=== PATIENT | male | born 1970 | race Caucasian/White ===

== ENCOUNTER 2016-07-26 05:50 | Emergency (ER) ==
[2016-07-26] MEDS ORDERED: SODIUM CHLORIDE 1,000 ML IV STA ×3 (05:51→08:08)
[2016-07-26] MEDS ORDERED: ZOFRAN 4 MG/2 ML IVP STA ×2 (05:52→08:53)
[2016-07-26] MEDS ORDERED: DILAUDID 1 MG/ML SYRINGE IVP STA ×3 (05:52→08:53)
[2016-07-26 06:00] VITALS: BP 108/74; TEMP 98.8; BMI 39.0
[2016-07-26 06:01] LABS: BASOPHILS % (AUTO) 0.2 % (0.0-3.0); EOSINOPHILS # (AUTO) 0.1 K/ul (0.0-0.7); EOSINOPHILS % (AUTO) 0.5 % (0.0-7.0); HEMATOCRIT 48.9 % (42.0-52.0); HEMOGLOBIN 16.6 g/dl (14.0-18.0); IMMATURE GRANULOCYTE % (AUTO) 0.5 % (0.0-5.0); LYMPHOCYTES # (AUTO) 0.6 K/uL (0.60-3.4); LYMPHOCYTES % (AUTO) 5.4 (10.0-50.0); MEAN CORPUSCULAR HEMOGLOBIN 29.7 pg (27.0-31.0); MEAN CORPUSCULAR HGB CONC 33.9 (31.8-35.4); MEAN CORPUSCULAR VOLUME 87.5 fl (80.0-94.0); MONOCYTES # (AUTO) 0.5 K/uL (0.4-2.0); MONOCYTES % (AUTO) 4.1 (0-10); NEUTROPHILS % (AUTO) 89.3; PLATELET COUNT 156 10^3/uL (140-440); RED BLOOD COUNT 5.59 10^6/ul (4.70-6.10); WHITE BLOOD COUNT 11.16 K/ul (4.2-10.2)
[2016-07-26 06:21] LABS: ALANINE AMINOTRANSFERASE 41 U/L (12-78); ALBUMIN/GLOBULIN RATIO 1.11; ALKALINE PHOSPHATASE 61 U/L (50-136); AMYLASE 87 U/L (25-115); ANION GAP 13.4; ASPARTATE AMINO TRANSFERASE 22 U/L (15-37); BILIRUBIN,TOTAL 1.11 mg/dL (0.00-1.20); BLOOD UREA NITROGEN 18 mg/dL (7-18); BUN/CREATININE RATIO 18.18; CALCIUM 9.1 mg/dL (8.2-10.2); CARBON DIOXIDE 24 mmol/L (21-32); CHLORIDE 107 mmol/L (98-107); CREATINE KINASE 138 U/L; CREATININE 0.99 mg/dL (0.60-1.10); GLUCOSE 151 mg/dL (70-100); LIPASE 24 U/L (8-78); POTASSIUM 4.4 mmol/L (3.5-5.1); TOTAL PROTEIN 7.6 g/dL (6.4-8.2)
--- NOTE | 2016-07-26 06:23 | ED.PDOC ---
General Stated Complaint: vomiting and abd pain for 5hrs--no diarrhea Time Seen by Physician: 05:55 Mode of Arrival: Walk-In Information Source: Patient Exam Limitations: No limitations Nursing and Triage Documentation Reviewed and Agree: Yes <JOSE FRANCISCONORMA - Last Filed: 07/26/16 06:46> Stated Complaint: BEGAN WITH [employer] DENIES CONCERS ABOUT FOOD HAS BEEN AT WORK <FABRICIO SANDERS JR - Last Filed: 07/26/16 08:12> ED Provider: Dr. FABRICIO SANDERS JR Chief Complaint: Nausea/Vomiting GI Complaint Exam - Abdominal Pain Complaint/Exam Onset: Gradual Duration: 5hrs Symptoms Are: Still present Timing: Constant Initial Severity: Mild Current Severity: Moderate Location of Pain: Diffuse Character: Reports: Dull, Aching, Cramping Aggravating: Reports: None Alleviating: Reports: None Associated Signs and Symptoms: Reports: Nausea, Vomiting. Denies: Diaphoresis, Fever, Cough, Chest pain, Dizziness, Back pain, Constipation, Blood in stool, Dysuria, Urinary frequency, Decreased urine output, Decreased appetite, Discharge, Diarrhea Cardiac Risk Factors: Reports: DM Testicular Torsion Risk Factors: Reports: None Surgical Obstruction Risk Factors: Reports: None Related Surgical History: Reports: None Abdominal Findings: Present: None Differential Diagnoses: Appendicitis, Bowel Obstruction, Constipation, Pancreatitis, GB Quality Indicator For Non-Traumatic Chest Pain/Syncope: EKG Performed <JOSE FRANCISCONORMA Last Filed: 07/26/16 06:46> Review of Systems - Review Of Systems Constitutional: Reports: No symptoms Eyes: Reports: No symptoms Ears, Nose, Mouth, Throat: Reports: No symptoms Respiratory: Reports: No symptoms Cardiac: Reports: No symptoms GI: Reports: Abdominal pain, Nausea, Vomiting. Denies: Diarrhea : Reports: No symptoms Musculoskeletal: Reports: No symptoms Skin: Reports: No symptoms Neurological: Reports: No symptoms Endocrine: Reports: No symptoms Hematologic/Lymphatic: Reports: No symptoms All Other Systems: Reviewed and Negative <JOSE FRANCISCONORMA - Last Filed: 07/26/16 06:46> Past Medical History - Past Medical History Endocrine: Reports: DM 2 Cardiovascular: Reports: Unknown Respiratory: Reports: Unknown Hematological: Reports: Unknown Gastrointestinal: Reports: Unknown Genitourinary: Reports: Unknown Neuro/Psych: Reports: Unknown Musculoskeletal: Reports: Unknown Cancer: Reports: Unknown - Surgical History General Surgical History: Reports: Unknown - Family History Family History: Reports: Unknown - Social History Smoking Status: Never smoker Hx Substance Use: No Alcohol Screening: None - Immunizations Tetanus Shot up to Date: Yes <NORMA FELTON - Last Filed: 07/26/16 06:46> Physical Exam - Physical Exam Appearance: Well-appearing, No pain distress, Well-nourished Pain Distress: Moderate Eyes: LINA, EOMI, Conjunctiva clear ENT: Ears normal, Nose normal, Oropharynx normal Neck: Supple Respiratory: Airway patent, Breath sounds clear, Breath sounds equal, Respirations nonlabored Cardiovascular: RRR, Pulses normal, No rub, No murmur GI/: Soft, No masses, Bowel sounds normal, No Organomegaly, Tender Musculoskeletal: Normal strength Skin: Warm, Dry, Normal color Neurological: Sensation intact, Motor intact, Reflexes intact, Cranial nerves intact, Alert, Oriented Psychiatric: Affect appropriate, Mood appropriate, Anxious <NORMA FELTON - Last Filed: 07/26/16 06:46> Physician Notification - Case Discussed Physician Notified: dr sanders Time of Notification: 07:00 <NORMA FELTON - Last Filed: 07/26/16 06:46> - Case Discussed Physician Notified: USHA CORBETT Time of Notification: 08:11 (ACCEPT FOR JELLY CLAY) Endorsed To/Discussed With: DR SWAIN Time of Discussion: 06:30 Admit/Transition Orders Entered by ED Provider: Yes <FABRICIO SANDERS JR - Last Filed: 07/26/16 08:12> Critical Care Note - Critical Care Note Total Time (mins): 2 <FABRICIO SANDERS JR - Last Filed: 07/26/16 08:12> Course - Course Hematology/Chemistry: 07/26/16 05:55 <NORMA FELTON - Last Filed: 07/26/16 06:46> - Course Hematology/Chemistry: 07/26/16 05:55 07/26/16 05:55 <FABRICIO SANDERS JR - Last Filed: 07/26/16 08:12> - Course Orders, Labs, Meds: Lab Review 07/26/16 07/26/16 07/26/16 05:55 06:00 06:30 WBC 11.16 H RBC 5.59 Hgb 16.6 Hct 48.9 MCV 87.5 MCH 29.7 MCHC 33.9 RDW Coeff of María 12.3 Plt Count 156 Immature Gran % (Auto) 0.5 Neut % (Auto) 89.3 Lymph % (Auto) 5.4 L [place] % (Auto) 4.1 Eos % (Auto) 0.5 Baso % (Auto) 0.2 Immature Gran # (Auto) 0.1 Neut # 10.0 H Lymph # 0.6 [place] # 0.5 Eos # 0.1 Baso # 0.0 Sodium 140 Potassium 4.4 Chloride 107 Carbon Dioxide 24 Anion Gap 13.4 BUN 18 Creatinine 0.99 Estimated GFR (MDRD) 81.00 BUN/Creatinine Ratio 18.18 Glucose 151 H Lactic Acid 13.6 Calcium 9.1 Total Bilirubin 1.11 AST 22 ALT 41 Alkaline Phosphatase 61 Total Creatine Kinase 138 CK-MB (CK-2) 1.3 CK-MB (CK-2) % 0.83229 Troponin I < 0.0100 Total Protein 7.6 Albumin 4.0 Globulin 3.6 Albumin/Globulin Ratio 1.11 Amylase 87 Lipase 24 Influenza A (Rapid) Negative Influenza B (Rapid) Negative Orders Category Date Time Status EKG-(ED ONLY) Stat CARDIO 07/26/16 05:51 Completed IV [ED IV/MEDIPORT/POWERPORT] .ONCE EMERGENCY 07/26/16 05:51 Active AMYLASE Stat LAB 07/26/16 05:55 Completed CBC W/ AUTO DIFF Stat LAB 07/26/16 05:55 Completed COMPREHENSIVE METABOLIC PANEL Stat LAB 07/26/16 05:55 Completed CREATINE KINASE Stat LAB 07/26/16 05:55 Completed LACTIC ACID Stat LAB 07/26/16 06:30 Completed LIPASE Stat LAB 07/26/16 05:55 Completed MOLECULAR GROUP A STREP Stat LAB 07/26/16 06:00 Results RAPID FLU A/B Stat LAB 07/26/16 06:00 Completed STREP SCREEN Stat LAB 07/26/16 06:00 Results TROPONIN I Stat LAB 07/26/16 05:55 Completed URINALYSIS C & S IF INDICATED Stat LAB 07/26/16 05:51 Uncollected 0.9 % Sodium Chloride [Saline Flush] MEDS 07/26/16 05:51 Ordered 1 syr IVF PRN PRN Dicyclomine Inj [Bentyl] MEDS 07/26/16 06:57 Discontinued 10 mg IM ONCE STA Diphenhydramine Inj [Benadryl] MEDS 07/26/16 07:26 Discontinued 25 mg IVP ONCE STA Hydromorphone HCl [Dilaudid 1 mg/ml Syringe] MEDS 07/26/16 06:57 Discontinued 0.5 mg IVP ONCE STA Hydromorphone HCl [Dilaudid 1 mg/ml Syringe] MEDS 07/26/16 05:52 Discontinued 1 mg IVP ONCE STA Ondansetron HCl/Pf [Zofran 4 mg/2 ml] MEDS 07/26/16 05:52 Discontinued 8 mg IVP ONCE STA Sodium Chloride 0.9% [Sodium Chloride] 1,000 ml MEDS 07/26/16 08:08 Active IV 75 mls/hr Sodium Chloride 0.9% [Sodium Chloride] 1,000 ml MEDS 07/26/16 05:51 Discontinued IV BOLUS Sodium Chloride 0.9% [Sodium Chloride] 1,000 ml MEDS 07/26/16 05:[address] ABDOMEN/PELVIS WO CONTRAST Stat RADS 07/26/16 06:45 Completed Medications Generic Name Dose Route Start Last Admin Trade Name Freq PRN Reason Stop Dose Admin Sodium Chloride 1,000 mls @ 75 mls/hr 07/26/16 08:08 07/26/16 08:10 Sodium Chloride IV 07/26/16 21:27 75 mls/hr .[id number] STA Administration Sodium Chloride 1 syr 07/26/16 05:51 Saline Flush IVF PRN PRN To flush IV Discontinued Medications Generic Name Dose Route Start Last Admin Trade Name Freq PRN Reason Stop Dose Admin Dicyclomine HCl 10 mg 07/26/16 06:57 07/26/16 07:10 Bentyl IM 07/26/16 06:58 10 mg ONCE STA Administration Diphenhydramine HCl 25 mg 07/26/16 07:26 07/26/16 07:47 Benadryl IVP 07/26/16 07:27 25 mg ONCE STA Administration Hydromorphone HCl 1 mg 07/26/16 05:52 07/26/16 06:14 Dilaudid 1 Mg/Ml Syringe IVP 07/26/16 05:53 1 mg ONCE STA Administration Hydromorphone HCl 0.5 mg 07/26/16 06:57 07/26/16 07:08 Dilaudid 1 Mg/Ml Syringe IVP 07/26/16 06:58 0.5 mg ONCE STA Administration Sodium Chloride 1,000 mls @ 1,000 mls/hr 07/26/16 05:51 07/26/16 07:11 Sodium Chloride IV 07/26/16 06:50 1,000 mls/hr BOLUS STA Administration Sodium Chloride 1,000 mls @ 1,000 mls/hr 07/26/16 05:52 07/26/16 06:16 Sodium Chloride IV 07/26/16 06:51 1,000 mls/hr BOLUS STA Administration Ondansetron HCl 8 mg 07/26/16 05:52 07/26/16 06:13 Zofran 4 Mg/2 Ml IVP 07/26/16 05:53 8 mg ONCE STA Administration Vital Signs: Temp Pulse Resp BP Pulse Ox 07/26/16 05:50 98.8 F 93 H 28 H 108/74 98 Departure <NORMA FELTON - Last Filed: 07/26/16 06:46> - Departure Time of Disposition: 07:33 Pt referred to PMD for follow-up: Yes <FABRICIO SANDERS JR - Last Filed: 07/26/16 08:12> - Departure Disposition: [facility]SF SHORT-TRM HOSP Discharge Problem: Nausea, Vomiting, Cholelithiasis Instructions: Gallstones (ED), Acute Abdominal Pain (ED) Condition: Fair Additional Instructions: [facility] DR SWAIN Allergies/Adverse Reactions: Allergies carisoprodol [From Soma] Adverse Reaction (Verified 07/26/16 05:56) hydroxyzine HCl [From Vistaril] Adverse Reaction (Verified 07/26/16 05:56) hydroxyzine pamoate [From Vistaril] Adverse Reaction (Verified 07/26/16 05:56) Penicillins Adverse Reaction (Verified 07/26/16 05:56) promethazine HCl [From Phenergan] Adverse Reaction (Verified 07/26/16 05:56) Home Medications: Ambulatory Orders Linagliptin/Metformin HCl [Jentadueto 2.5 mg-500 mg Tab] 2.5 mg PO BID 07/26/16
[2016-07-26 06:41] LABS: FLU INTERNAL QC INTERNAL QC VALID; RAPID FLU A NEGATIVE (NEGATIVE); RAPID FLU B NEGATIVE (NEGATIVE)
[2016-07-26 06:54] LABS: SODIUM 140 mmol/L (136-145)
[2016-07-26 06:57] LABS: CREATINE KINASE MB 1.3 ng/ml (0.0-3.6)
[2016-07-26] MEDS ORDERED: BENTYL IM STA (06:57)
--- NOTE | 2016-07-26 07:15 | CT ---
Exam: CT of the abdomen and pelvis without contrast History: Abdominal pain and vomiting Technique: [address] of the abdomen and pelvis without intravascular contrast FINDINGS: The lung bases are clear. Small hiatus hernia mostly with fat. The liver density is diff usely decreased measuring 30 HU. The liver is unremarkable otherwise. Pancreas, spleen and adrenal glands appear normal. Cholelithiasis without pericholecystic inflammation. Kidneys and proximal co llecting system are unremarkable. The appendix is normal. Bowel loops demonstrate normal caliber. No inflamatory change seen in the mesentery or retroperitoneum. Vascular structures appear normal by n oncontrast CT. Trace atherosclerotic calcification of the aorta. Pelvic genitourinary structures appear normal. Pelvic bowel loops are unremarkable. No inflammatory change in the pelvic fat. No acute abnormality of the abdominal or pelvic skeleton. Impression: 1. No inflammatory process, bowel or urinary obstruction is seen. 2. Cholelithiasis without CT evidence of cholecystitis.
[2016-07-26] MEDS ORDERED: BENADRYL IVP STA (07:26)
== END 2016-07-26 09:20 | disposition short-term general hospital (02) ==
LOC: ED 05:50
DX: K80.20 Calculus of gallbladder without cholecystitis without obstruction (principal); R11.2 Nausea with vomiting, unspecified; E11.9 Type 2 diabetes mellitus without complications
CPT/HCPCS: 36415; 80053; 82150; 82550; 82553; 83605; 83690; 84484; 85025; 87651; 87804; 87880; 93005; 93010; 96361; 96372; 96374; 96375; 96376; 99285

== ENCOUNTER 2016-07-26 09:23 | Outpatient (CLI) | payer OTHER ==
[2016-07-26 06:00] VITALS: BMI 39.0
== END 2016-07-26 09:24 ==
LOC: AMBL 09:23
PROVIDERS: ATTEND Emergency Medicine
DX: R10.9 Unspecified abdominal pain (principal); K80.80 Other cholelithiasis without obstruction; R11.2 Nausea with vomiting, unspecified

== ENCOUNTER 2016-10-09 19:13 | Inpatient (IN) ==
[2016-10-09] MEDS ORDERED: SODIUM CHLORIDE 500 ML IV STA (19:25)
[2016-10-09] MEDS ORDERED: ZOFRAN 4 MG/2 ML IVP STA (19:27)
[2016-10-09] MEDS ORDERED: ASPIRIN CHEWABLE PO STA (19:27)
[2016-10-09 19:35] LABS: BASOPHILS % (AUTO) 0.4 % (0.0-3.0); EOSINOPHILS % (AUTO) 0.2 % (0.0-7.0); HEMATOCRIT 42.7 % (42.0-52.0); HEMOGLOBIN 14.9 g/dl (14.0-18.0); IMMATURE GRANULOCYTE % (AUTO) 0.4 % (0.0-5.0); LYMPHOCYTES # (AUTO) 0.7 K/uL (0.60-3.4); MEAN CORPUSCULAR HEMOGLOBIN 30.3 pg (27.0-31.0); MEAN CORPUSCULAR HGB CONC 34.9 (31.8-35.4); MONOCYTES # (AUTO) 0.5 K/uL (0.4-2.0); MONOCYTES % (AUTO) 9.8 (0-10); NEUTROPHILS % (AUTO) 75.2; PLATELET COUNT 111 10^3/uL (140-440); RED BLOOD COUNT 4.91 10^6/ul (4.70-6.10); WHITE BLOOD COUNT 5.29 K/ul (4.2-10.2)
[2016-10-09] MEDS ORDERED: TYLENOL PO STA (20:07)
[2016-10-09] MEDS ORDERED: DUONEB NEB STA (20:08)
[2016-10-09 20:10] LABS: ALANINE AMINOTRANSFERASE 42 U/L (12-78); ALBUMIN 3.7 g/dL (3.4-5.0); ALBUMIN/GLOBULIN RATIO 1.16; ALKALINE PHOSPHATASE 67 U/L (50-136); AMYLASE 64 U/L (25-115); ANION GAP 13.2; ASPARTATE AMINO TRANSFERASE 38 U/L (15-37); BILIRUBIN,TOTAL 0.89 mg/dL (0.00-1.20); BLOOD UREA NITROGEN 14 mg/dL (7-18); BUN/CREATININE RATIO 11.86; CALCIUM 8.7 mg/dL (8.2-10.2); CARBON DIOXIDE 20 mmol/L (21-32); CHLORIDE 105 mmol/L (98-107); CREATINE KINASE 199 U/L; CREATININE 1.18 mg/dL (0.60-1.10); GLUCOSE 137 mg/dL (70-100); LIPASE 12 U/L (8-78); MAGNESIUM 1.8 mg/dL (1.7-2.2); POTASSIUM 4.2 mmol/L (3.5-5.1); SODIUM 134 mmol/L (136-145); TOTAL PROTEIN 6.9 g/dL (6.4-8.2)
[2016-10-09 20:12] LABS: CREATINE KINASE MB 0.5 ng/ml (0.0-3.6)
[2016-10-09] MEDS ORDERED: INVANZ 1 GM in SODIUM CHLORIDE 50 ML IV STA (20:14)
[2016-10-09] MEDS ORDERED: VANCOMYCIN 1 GM in SODIUM CHLORIDE 250 ML IV STA (20:14)
--- NOTE | 2016-10-09 20:17 | DI ---
EXAM: CHEST FRONTAL VIEW HISTORY: Shortness of breath. COMPARISON: 05/10/2008 FINDINGS: Heart size and mediastinum within normal limits. Lungs are free of infiltrate. No c onsolidation or pleural fluid. There is no pneumothorax or acute bony finding. IMPRESSION: Findings within normal limits.
[2016-10-09] MEDS ORDERED: LOVENOX SUBCUT STA (20:20)
[2016-10-09] MEDS ORDERED: INVANZ ONE (20:24)
[2016-10-09] MEDS ORDERED: MORPHINE 2 MG/ML SYRINGE IVP STA (21:17)
--- NOTE | 2016-10-09 21:35 | CT ---
Exam: CT angiography of the chest History: Shortness of breath Technique: [address] of the chest utilizing CT angiography protocol. Multiplanar, maxim um intensity projection and three-dimensional reformations were performed. FINDINGS: Technically adequate for evaluation of pulmonary arteries and aorta. There are no pulmon lexii artery filling defects. The lung windows show no infiltrative opacities, suspicious nodules or masses. The heart, great vessels and pericardium appear normal. No pathologic lymph node enlargeme nt or abundance. Fatty hiatus hernia versus lower mediastinal lipomatosis. No acute findings of th e chest wall soft tissues or bony thorax. No acute findings of the upper abdomen. Impression: 1. No evidence of pulmonary artery thrombus. 2. No acute findings of the chest
--- NOTE | 2016-10-09 21:35 | CT ---
EXAM: CT ABDOMEN AND PELVIS HISTORY: Abdominal pain TECHNIQUE: CT abdomen and pelvis with intravenous contrast. Images were reconstructed using 5 mm se ction thickness. Reformations were prepared. 150 mL Omnipaque. COMPARISON: 07/26/2016 FINDINGS: Moderate fatty infiltration of the liver. Splenic size upper limit normal. Gallbladder is absent. Pancreas and adrenal glands are within normal limits. No hydronephrosis or ureteral obstruction id entified. Normal abdominal aorta. Several mildly prominent periaortic and mesenteric lymph nodes ar e nonspecific. No gastric distension. Normal appendix. Nonobstructive bowel gas pattern. Urinary bladder is unre markable. No evidence of prostate enlargement. There is no ascites or inflammatory infiltration of the abdominal fat. Tiny fatty umbilical hernia with a transverse neck of 1.3 cm likely of no current clinical significa nce. Tiny fatty right inguinal hernia also likely of no current clinical significance. Moderate de generative changes of the lumbosacral junction. Lung bases are free of acute infiltrate. No pneumo peritoneum. IMPRESSION: 1. Moderate fatty infiltration of the liver similar to that previously seen. 2. Splenic size upper limit normal. 3. A few prominent periaortic and mesenteric lymph nodes are nonspecific. 4. Normal bowel gas pattern. No ascites, inflammatory process or free air.
--- NOTE | 2016-10-09 21:46 | ED.PDOC ---
General ED Provider: Dr. ELLIE ELLER Chief Complaint: Shortness of Air Stated Complaint: Patient is a 46 year old male who comes to the ER with 2 day history of worsening of shortness of breath dizziness and weakness with some nausea. Denies any Tick bites. 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 Denies any sick contacts. Time Seen by Physician: 21:44 Mode of Arrival: Walk-In Information Source: Patient Exam Limitations: No limitations Primary Care Provider: NORMA SWAIN Nursing and Triage Documentation Reviewed and Agree: Yes Respiratory Complaint Exam - Shortness of Air Complaint/Exam Onset/Duration: 2 days Symptoms Are: Still present Timing: Constant Initial Severity: Moderate Character: Reports: Dyspnea at rest Aggravating: Reports: None Alleviating: Reports: None Associated Signs and Symptoms: Reports: Fever, Chills, Diaphoresis Pulmonary Embolism Risk Factors: Reports: None Cardiac Risk Factors: Reports: Diabetes Pseudomonas Risk Factors: Reports: None Home Oxygen Use: No Recent Stress Test: No Recent Echo/LV Function: No Respiratory Distress: None Stridor Present: No Tracheal Deviation: No Subcutaneous Emphysema: No Accessory Muscle Use: No Diminished Breath Sounds: Yes Prolonged Expiratory Phase: No Unable to Speak Full Sentences: No Fatigue: No Leg Swelling: No Madalyn's Sign Present: No Grunting Respirations: No Kussmaul Respirations: No Differential Diagnoses: Pneumonia, Diabetic Ketoacidosis Quality Indicators for AMI: EKG in 10min. Quality Indicators for Cardiac Chest Pain: EKG in 10min., ASA if indicated Review of Systems - Review Of Systems Constitutional: Reports: No symptoms Eyes: Reports: No symptoms Ears, Nose, Mouth, Throat: Reports: No symptoms Respiratory: Reports: Short of air Cardiac: Reports: No symptoms GI: Reports: No symptoms : Reports: No symptoms Musculoskeletal: Reports: No symptoms. Denies: Neck pain Skin: Reports: No symptoms Neurological: Reports: Anxiety, Headache Endocrine: Reports: No symptoms Hematologic/Lymphatic: Reports: No symptoms All Other Systems: Reviewed and Negative Past Medical History - Past Medical History Endocrine: Reports: DM 2 Cardiovascular: Reports: None Respiratory: Reports: None Hematological: Reports: None Gastrointestinal: Reports: None Genitourinary: Reports: None Neuro/Psych: Reports: None Musculoskeletal: Reports: None Cancer: Reports: None Other Pertinent Past Medical History: Obesity - Surgical History General Surgical History: Reports: None - Family History Family History: Reports: Diabetes - Social History Smoking Status: Never smoker Hx Substance Use: No Alcohol Screening: None - Immunizations Tetanus Shot up to Date: Yes Physical Exam - Physical Exam Appearance: Ill-appearing Ill-appearing: Severe Pain Distress: Mild Eyes: LINA ENT: Oropharynx normal Neck: Supple Respiratory: Breath sounds diminished, Wheezes (mild ) Cardiovascular: Tachycardia GI/: Soft, Nontender Musculoskeletal: Normal strength, ROM intact, No edema, No calf tenderness Skin: Warm, Dry, Normal color Neurological: Sensation intact, Motor intact, Reflexes intact, Cranial nerves intact, Alert, Oriented Psychiatric: Anxious Interpretation - Radiology Interpretation Radiology Interpretation By: Radiologist Radiology Results: Negative Exam Interpreted: Portable CXR, [facility] - Manager Leadership Development Rate: Tachy Rhythm: Sinus Ectopy: PVCs - EKG Interpretation Time of EKG #1: 19:58 Rate: Tachy Rhythm: Sinus Ectopy: PVCs Center: NL Interpretation: Sinus with Frequent PVCS Physician Notification - Case Discussed Physician Notified: Dr Barnes Time of Notification: 22:00 Critical Care Note - Critical Care Note Total Time (mins): 80 Course - Course Hematology/Chemistry: 10/09/16 19:30 10/09/16 19:30 Orders, Labs, Meds: Lab Review 10/09/16 10/09/16 19:30 21:48 WBC 5.29 RBC 4.91 Hgb 14.9 Hct 42.7 MCV 87.0 MCH 30.3 MCHC 34.9 RDW Coeff of María 12.2 Plt Count 111 L Immature Gran % (Auto) 0.4 Neut % (Auto) 75.2 Lymph % (Auto) 14.0 [place] % (Auto) 9.8 Eos % (Auto) 0.2 Baso % (Auto) 0.4 Immature Gran # (Auto) 0.0 Neut # 4.0 Lymph # 0.7 [place] # 0.5 Eos # 0.0 Baso # 0.0 D-Dimer (Manual) 1292.27 Sodium 134 L Potassium 4.2 Chloride 105 Carbon Dioxide 20 L Anion Gap 13.2 BUN 14 Creatinine 1.18 H Estimated GFR (MDRD) 66.00 BUN/Creatinine Ratio 11.86 Glucose 137 H Lactic Acid 9.6 Calcium 8.7 Magnesium 1.8 Total Bilirubin 0.89 AST 38 H ALT 42 Alkaline Phosphatase 67 Total Creatine Kinase 199 CK-MB (CK-2) 0.5 CK-MB (CK-2) % 0.90057 Troponin I < 0.0100 Total Protein 6.9 Albumin 3.7 Globulin 3.2 Albumin/Globulin Ratio 1.16 Amylase 64 Lipase 12 Procalcitonin 0.40 TSH 0.066 L Influenza A (Rapid) Negative Influenza B (Rapid) Negative Orders Category Date Time Status EKG-(ED ONLY) Stat CARDIO 10/09/16 19:19 Completed EKG-(ED ONLY) Stat CARDIO 10/09/16 21:00 Completed NEBULIZER TREATMENT Stat CARDIO 10/09/16 20:09 Completed OXYGEN Routine CARDIO 10/09/16 22:41 Ordered ACTIVITY .Up ad [place]ka CARE 10/09/16 22:41 Active BLOOD GLUCOSE MONITORING Q4HR CARE 10/09/16 22:43 Active GIVE HS SNACK 2100 CARE 10/09/16 22:42 Active INTAKE & OUTPUT Q8HR CARE 10/09/16 22:41 Active NPO REMINDER: IMAGING ONCE CARE 10/09/16 20:17 Completed NPO REMINDER: IMAGING ONCE CARE 10/09/16 20:19 Completed VITAL SIGNS Q4HR CARE 10/09/16 22:41 Active ADA 1800 ROXIE. DIET DIETARY 10/09/16 Breakfast Ordered HS SNACK DIETARY 10/09/16 Dinner Ordered AMYLASE Stat LAB 10/09/16 19:30 Completed BASIC METABOLIC PANEL DAILY@0600 LAB 10/10/16 06:00 Ordered BASIC METABOLIC PANEL DAILY@0600 LAB 10/11/16 06:00 Ordered BASIC METABOLIC PANEL DAILY@0600 LAB 10/12/16 06:00 Ordered BASIC METABOLIC PANEL DAILY@0600 LAB 10/13/16 06:00 Ordered BASIC METABOLIC PANEL DAILY@0600 LAB 10/14/16 06:00 Ordered BASIC METABOLIC PANEL DAILY@0600 LAB 10/15/16 06:00 Ordered BASIC METABOLIC PANEL DAILY@0600 LAB 10/16/16 06:00 Ordered BASIC METABOLIC PANEL DAILY@0600 LAB 10/17/16 06:00 Ordered BASIC METABOLIC PANEL DAILY@0600 LAB 10/18/16 06:00 Ordered BASIC METABOLIC PANEL DAILY@0600 LAB 10/19/16 06:00 Ordered BASIC METABOLIC PANEL DAILY@0600 LAB 10/20/16 06:00 Ordered BASIC METABOLIC PANEL DAILY@0600 LAB 10/21/16 06:00 Ordered BASIC METABOLIC PANEL DAILY@0600 LAB 10/22/16 06:00 Ordered BASIC METABOLIC PANEL DAILY@0600 LAB 10/23/16 06:00 Ordered BASIC METABOLIC PANEL DAILY@0600 LAB 10/24/16 06:00 Ordered BASIC METABOLIC PANEL DAILY@0600 LAB 10/25/16 06:00 Ordered BASIC METABOLIC PANEL DAILY@0600 LAB 10/26/16 06:00 Ordered BASIC METABOLIC PANEL DAILY@0600 LAB 10/27/16 06:00 Ordered BASIC METABOLIC PANEL DAILY@0600 LAB 10/28/16 06:00 Ordered BASIC METABOLIC PANEL DAILY@0600 LAB 10/29/16 06:00 Ordered BLOOD CULTURE Stat LAB 10/09/16 19:30 Received CBC W/ AUTO DIFF DAILY@0600 LAB 10/10/16 06:00 Ordered CBC W/ AUTO DIFF DAILY@0600 LAB 10/11/16 06:00 Ordered CBC W/ AUTO DIFF DAILY@0600 LAB 10/12/16 06:00 Ordered CBC W/ AUTO DIFF DAILY@0600 LAB 10/13/16 06:00 Ordered CBC W/ AUTO DIFF DAILY@0600 LAB 10/14/16 06:00 Ordered CBC W/ AUTO DIFF DAILY@0600 LAB 10/15/16 06:00 Ordered CBC W/ AUTO DIFF DAILY@0600 LAB 10/16/16 06:00 Ordered CBC W/ AUTO DIFF DAILY@0600 LAB 10/17/16 06:00 Ordered CBC W/ AUTO DIFF DAILY@0600 LAB 10/18/16 06:00 Ordered CBC W/ AUTO DIFF DAILY@0600 LAB 10/19/16 06:00 Ordered CBC W/ AUTO DIFF DAILY@0600 LAB 10/20/16 06:00 Ordered CBC W/ AUTO DIFF DAILY@0600 LAB 10/21/16 06:00 Ordered CBC W/ AUTO DIFF DAILY@0600 LAB 10/22/16 06:00 Ordered CBC W/ AUTO DIFF DAILY@0600 LAB 10/23/16 06:00 Ordered CBC W/ AUTO DIFF DAILY@0600 LAB 10/24/16 06:00 Ordered CBC W/ AUTO DIFF DAILY@0600 LAB 10/25/16 06:00 Ordered CBC W/ AUTO DIFF DAILY@0600 LAB 10/26/16 06:00 Ordered CBC W/ AUTO DIFF DAILY@0600 LAB 10/27/16 06:00 Ordered CBC W/ AUTO DIFF DAILY@0600 LAB 10/28/16 06:00 Ordered CBC W/ AUTO DIFF DAILY@0600 LAB 10/29/16 06:00 Ordered CBC W/ AUTO DIFF Stat LAB 10/09/16 19:30 Completed COMPREHENSIVE METABOLIC PANEL Stat LAB 10/09/16 19:30 Completed CREATINE KINASE Q8H LAB 10/10/16 00:00 Ordered CREATINE KINASE Q8H LAB 10/10/16 08:00 Ordered CREATINE KINASE Stat LAB 10/09/16 19:30 Completed D-DIMER Stat LAB 10/09/16 19:30 Completed FLU A & B RAPID TEST [RAPID FLU A/B] Stat LAB 10/09/16 21:48 Completed LACTIC ACID Stat LAB 10/09/16 19:30 Completed LIPASE Stat LAB 10/09/16 19:30 Completed MAGNESIUM Stat LAB 10/09/16 19:30 Completed MOLECULAR GROUP A STREP Stat LAB 10/09/16 21:48 Results PROCALCITONIN Stat LAB 10/09/16 19:30 Completed STREP SCREEN Stat LAB 10/09/16 21:48 Results TROPONIN I Q8H LAB 10/10/16 00:00 Ordered TROPONIN I Q8H LAB 10/10/16 08:00 Ordered TROPONIN I Stat LAB 10/09/16 19:30 Completed TSH [THYROID STIMULATING HORMONE] Stat LAB 10/09/16 19:30 Completed URINALYSIS C & S IF INDICATED Stat LAB 10/09/16 22:02 Uncollected Acetaminophen [Tylenol] MEDS 10/09/16 20:07 Discontinued 1,000 mg PO ONCE STA Aspirin [Aspirin Chewable] MEDS 10/09/16 19:27 Discontinued 324 mg PO ONCE STA Enoxaparin Sodium [Lovenox] MEDS 10/09/16 20:20 Discontinued 130 mg SUBCUT ONCE STA Enoxaparin Sodium [Lovenox] MEDS 10/10/16 09:00 Ordered 40 mg SUBCUT DAILY Ertapenem Sodium [Invanz] MEDS 10/09/16 20:24 Discontinued 1 gm .ROUTE .STK-MED ONE Ertapenem Sodium [Invanz] 1 gm MEDS 10/09/16 20:14 Discontinued 0.9 % Sodium Chloride [Sodium Chloride] 50 ml IV ONCE Ipratropium/Albuterol Neb [Duoneb] MEDS 10/09/16 20:08 Discontinued 1 vial NEB ONCE STA Morphine Sulfate [Morphine 2 mg/ml Syringe] MEDS 10/09/16 21:17 Discontinued 2 mg IVP ONCE STA Morphine Sulfate [Morphine 2 mg/ml Syringe] MEDS 10/09/16 22:41 Ordered 2 mg IVP Q4H PRN Ondansetron HCl/Pf [Zofran 4 mg/2 ml] MEDS 10/09/16 19:27 Discontinued 4 mg IVP ONCE STA Ondansetron HCl/Pf [Zofran 4 mg/2 ml] MEDS 10/09/16 22:41 Ordered 4 mg IVP Q6H PRN Sodium Chloride 0.9% [Sodium Chloride] 1,000 ml MEDS 10/09/16 23:00 Ordered IV 150 mls/hr Sodium Chloride 0.9% [Sodium Chloride] 500 ml MEDS 10/09/16 19:25 Discontinued IV BOLUS Vancomycin HCl [Vancomycin] 1 gm MEDS 10/09/16 20:14 Discontinued 0.9 % Sodium Chloride [Sodium Chloride] 250 ml IV ONCE Vancomycin HCl [Vancomycin] 1 gm MEDS 10/10/16 09:00 Ordered 0.9 % Sodium Chloride [Sodium Chloride] 250 ml IV Q12HR RESUSCITATION STATUS Routine OTHERS 10/09/16 22:41 Ordered CHEST, 1V AP ONLY Stat RADS 10/09/16 19:[address] ABDOMEN/PELVIS W CONTRAST Stat RADS 10/09/16 20:[address] CHEST PE PROTOCOL Stat RADS 10/09/16 20:16 Completed Medications Generic Name Dose Route Start Last Admin Trade Name Freq PRN Reason Stop Dose Admin Acetaminophen 325 mg 10/09/16 23:01 Tylenol PO Q4H PRN Fever Doxycycline Hyclate 100 mg 10/09/16 23:00 10/09/16 23:29 Doxycycline Hyclate PO 100 mg Q12HR CAN Administration Enoxaparin Sodium 40 mg 10/10/16 09:00 Lovenox SUBCUT DAILY CAN Sodium Chloride 1,000 mls @ 150 mls/hr 10/09/16 23:00 Sodium Chloride IV .Q6H40M CAN Vancomycin HCl 1 gm/ Sodium 250 mls @ 125 mls/hr 10/10/16 09:00 Chloride IV Q12HR CAN Sodium Chloride 1,000 mls @ 400 mls/hr 10/09/16 22:46 Sodium Chloride IV 10/10/16 01:15 BOLUS STA Insulin Human Regular 0 - 20 unit 10/09/16 22:47 Humulin R SUBCUT PRN PRN Hyperglycemica Protocol Morphine Sulfate 2 mg 10/09/16 22:41 Morphine 2 Mg/Ml Syringe IVP Q4H PRN Severe Pain Non-Formulary Medication 2.5 mg 10/10/16 09:00 Linagliptin/Metformin Hcl [Jentadueto 2.5 Mg-500 Mg Tab] PO BID CAN Ondansetron HCl 4 mg 10/09/16 22:41 Zofran 4 Mg/2 Ml IVP Q6H PRN Nausea / Vomiting Discontinued Medications Generic Name Dose Route Start Last Admin Trade Name Freq PRN Reason Stop Dose Admin Acetaminophen 1,000 mg 10/09/16 20:07 10/09/16 20:29 Tylenol PO 10/09/16 20:08 1,000 mg ONCE STA Administration Albuterol/Ipratropium 1 vial 10/09/16 20:08 10/09/16 20:18 Duoneb NEB 10/09/16 20:09 1 vial ONCE STA Administration Aspirin 324 mg 10/09/16 19:27 10/09/16 19:40 Aspirin Chewable PO 10/09/16 19:28 324 mg ONCE STA Administration Enoxaparin Sodium 130 mg 10/09/16 20:20 10/09/16 20:30 Lovenox SUBCUT 10/09/16 20:21 130 mg ONCE STA Administration Sodium Chloride 500 mls @ 500 mls/hr 10/09/16 19:25 10/09/16 19:30 Sodium Chloride IV 10/09/16 20:24 500 mls/hr BOLUS STA Administration Vancomycin HCl 1 gm/ Sodium 250 mls @ 250 mls/hr 10/09/16 20:14 10/09/16 22: 02 Chloride IV 10/09/16 21:13 250 mls/hr ONCE STA Administration Ertapenem 1 gm/ Sodium 50 mls @ 75 mls/hr 10/09/16 20:14 10/09/16 20:53 Chloride IV 10/09/16 20:53 75 mls/hr ONCE STA Administration Morphine Sulfate 2 mg 10/09/16 21:17 10/09/16 21:27 Morphine 2 Mg/Ml Syringe IVP 10/09/16 21:18 2 mg ONCE STA Administration Ondansetron HCl 4 mg 10/09/16 19:27 10/09/16 19:40 Zofran 4 Mg/2 Ml IVP 10/09/16 19:28 4 mg ONCE STA Administration Vital Signs: Temp Pulse Resp BP Pulse Ox 10/09/16 21:49 101.2 F H 10/09/16 21:07 100.2 F H 10/09/16 19:13 98 F 88 24 110/58 L 97 Departure - Departure Time of Disposition: 22:55 Disposition: ADMITTED INPATIENT Discharge Problem: Sepsis, Fever and chills, Tachypnea Condition: Serious Pt referred to PMD for follow-up: No Allergies/Adverse Reactions: Allergies carisoprodol [From Soma] Adverse Reaction (Verified 10/09/16 19:35) hydroxyzine HCl [From Vistaril] Adverse Reaction (Verified 10/09/16 19:35) hydroxyzine pamoate [From Vistaril] Adverse Reaction (Verified 10/09/16 19:35) Penicillins Adverse Reaction (Verified 10/09/16 19:35) promethazine HCl [From Phenergan] Adverse Reaction (Verified 10/09/16 19:35) Home Medications: Ambulatory Orders Linagliptin/Metformin HCl [Ivanatajames 2.5 mg-500 mg Tab] 2.5 mg PO BID 07/26/16
[2016-10-09 22:28] LABS: FLU INTERNAL QC INTERNAL QC VALID; RAPID FLU A NEGATIVE (NEGATIVE); RAPID FLU B NEGATIVE (NEGATIVE)
[2016-10-09] MEDS ORDERED: ZOFRAN 4 MG/2 ML IVP PRN (22:41)
[2016-10-09] MEDS ORDERED: MORPHINE 2 MG/ML SYRINGE IVP PRN (22:41)
[2016-10-09] MEDS ORDERED: SODIUM CHLORIDE 1,000 ML IV STA (22:46)
[2016-10-09] MEDS ORDERED: HUMULIN R SUBCUT PRN (22:47)
[2016-10-09] MEDS ORDERED: SODIUM CHLORIDE 1,000 ML IV SCH (23:00)
[2016-10-09] MEDS ORDERED: DOXYCYCLINE HYCLATE PO SCH (23:00)
[2016-10-09 23:18] VITALS: BMI 41.8
[2016-10-10 01:56] LABS: CREATINE KINASE 228 U/L
[2016-10-10 01:57] LABS: CREATINE KINASE MB 0.6 ng/ml (0.0-3.6)
[2016-10-10] MEDS: TYLENOL PO PRN ×2 (02:09→05:47)
[2016-10-10 03:39] LABS: BILIRUBIN,URINE Negative (NEGATIVE); KETONES,URINE Negative (NEGATIVE); LEUKOCYTE ESTERASE ,URINE Negative (NEGATIVE); NITRITE,URINE Negative (NEGATIVE); PROTEIN,URINE Negative (NEGATIVE); URINE, BLOOD Trace-intact (NEGATIVE)
[2016-10-10 03:40] LABS: ADD URINE MICROSCOPIC YES
[2016-10-10 04:43] LABS: BASOPHILS % (AUTO) 0.2 % (0.0-3.0); EOSINOPHILS % (AUTO) 0.2 % (0.0-7.0); HEMATOCRIT 38.4 % (42.0-52.0); HEMOGLOBIN 13.1 g/dl (14.0-18.0); IMMATURE GRANULOCYTE % (AUTO) 0.7 % (0.0-5.0); LYMPHOCYTES # (AUTO) 0.6 K/uL (0.60-3.4); LYMPHOCYTES % (AUTO) 14.5 (10.0-50.0); MEAN CORPUSCULAR HGB CONC 34.1 (31.8-35.4); MEAN CORPUSCULAR VOLUME 87.9 fl (80.0-94.0); MONOCYTES # (AUTO) 0.4 K/uL (0.4-2.0); MONOCYTES % (AUTO) 9.9 (0-10); NEUTROPHILS # (AUTO) 3.1 K/ul (2.0-6.9); NEUTROPHILS % (AUTO) 74.5; PLATELET COUNT 86 10^3/uL (140-440); RED BLOOD COUNT 4.37 10^6/ul (4.70-6.10); WHITE BLOOD COUNT 4.15 K/ul (4.2-10.2)
[2016-10-10 04:59] LABS: ANION GAP 11.9; BUN/CREATININE RATIO 12.37; CALCIUM 7.6 mg/dL (8.2-10.2); CREATININE 0.97 mg/dL (0.60-1.10); POTASSIUM 3.9 mmol/L (3.5-5.1)
[2016-10-10 05:36] VITALS: BP 130/74; TEMP 101.1
[2016-10-10] MEDS ORDERED: NORCO 5-325 PO PRN (06:37)
[2016-10-10] MEDS ORDERED: XOPENEX 1.25 MG NEB STA (07:29)
[2016-10-10] MEDS ORDERED: LOVENOX SUBCUT SCH (09:00)
[2016-10-10] MEDS ORDERED: METFORMIN HCL PO SCH (09:00)
[2016-10-10] MEDS ORDERED: VANCOMYCIN 1 GM in SODIUM CHLORIDE 250 ML IV SCH (09:00)
[2016-10-10] MEDS ORDERED: [UNRECOGNIZED DRUG - OTHER] PO SCH (09:00)
[2016-10-10] MEDS ORDERED: LINAGLIPTIN PO SCH (09:00)
[2016-10-10] MEDS ORDERED: VANCOMYCIN 2 GM in SODIUM CHLORIDE 500 ML IV SCH (09:00)
== END 2016-10-10 07:58 | disposition short-term general hospital (02) | DRG 864 ==
LOC: ED 19:13 → MEDSURG B 22:45
PROVIDERS: ADMIT Family Medicine; ATTEND Family Medicine
DX: R50.9 Fever, unspecified (principal); D70.9 Neutropenia, unspecified; D69.6 Thrombocytopenia, unspecified; R06.82 Tachypnea, not elsewhere classified; R00.0 Tachycardia, unspecified; E11.9 Type 2 diabetes mellitus without complications; Z79.84 Long term (current) use of oral hypoglycemic drugs
CPT/HCPCS: 36415; 80048; 80053; 81001; 82150; 82550; 82553; 82962; 83605; 83690; 83735; 84145; 84443; 84484; 85025; 85379; 87040; 87651; 87804; 87880; 93005; 93010; 94640; 96365; 96366; 96375; 99285

== ENCOUNTER 2016-10-10 07:59 | Outpatient (CLI) ==
[2016-10-09 23:18] VITALS: BMI 41.8
== END 2016-10-10 08:00 | disposition home or self-care (01) ==
LOC: AMBL 07:59
PROVIDERS: ATTEND Internal Medicine
DX: R06.02 Shortness of breath (principal); R53.1 Weakness; R50.9 Fever, unspecified

== ENCOUNTER 2016-11-18 23:55 | Emergency (ER) ==
[2016-11-18] MEDS: DUONEB NEB STA (23:59)
[2016-11-18] MEDS ORDERED: DUONEB NEB ONE (23:59)
[2016-11-19] MEDS: ADRENALIN 1:1000 SDV IM STA (00:10)
[2016-11-19] MEDS: BENADRYL IVP STA (00:11)
[2016-11-19] MEDS: SOLU-MEDROL 125 MG IVP STA (00:11)
[2016-11-19 02:28] VITALS: BP 151/104; TEMP 98.8; BMI 39.2
[2016-11-19] MEDS ORDERED: BENADRYL 25 MG in SODIUM CHLORIDE 100 ML IV STA (03:05)
[2016-11-19 03:19] LABS: ALBUMIN 3.7 g/dL (3.4-5.0); ALBUMIN/GLOBULIN RATIO 1.19; ANION GAP 16.4; BILIRUBIN,TOTAL 0.5 mg/dL (0.00-1.20); BUN/CREATININE RATIO 13.13; CALCIUM 9.6 mg/dL (8.2-10.2); CREATININE 0.99 mg/dL (0.60-1.10); HEMATOCRIT 43.3 % (42.0-52.0); HEMOGLOBIN 14.9 g/dl (14.0-18.0); POTASSIUM 3.4 mmol/L (3.5-5.1); RED BLOOD COUNT 4.96 10^6/ul (4.70-6.10); TOTAL PROTEIN 6.8 g/dL (6.4-8.2); WHITE BLOOD COUNT 7.06 K/ul (4.2-10.2)
[2016-11-19 03:20] LABS: BASOPHILS % (AUTO) 0.7 % (0.0-3.0); EOSINOPHILS # (AUTO) 0.2 K/ul (0.0-0.7); EOSINOPHILS % (AUTO) 2.4 % (0.0-7.0); LYMPHOCYTES # (AUTO) 3.1 K/uL (0.60-3.4); LYMPHOCYTES % (AUTO) 44.5 (10.0-50.0); MEAN CORPUSCULAR HGB CONC 34.4 (31.8-35.4); MEAN CORPUSCULAR VOLUME 87.3 fl (80.0-94.0); MONOCYTES # (AUTO) 0.6 K/uL (0.4-2.0); MONOCYTES % (AUTO) 8.5 (0-10); NEUTROPHILS # (AUTO) 3.1 K/ul (2.0-6.9); NEUTROPHILS % (AUTO) 43.8; PLATELET COUNT 144 10^3/uL (140-440)
[2016-11-19 03:21] LABS: BASOPHILS # (AUTO) 0.1 K/uL (0-0.2); IMMATURE GRANULOCYTE % (AUTO) 0.1 % (0.0-5.0)
--- NOTE | 2016-11-19 04:58 | DI ---
EXAM: Chest, one-view HISTORY: Shortness of breath FINDINGS: Cardiac and mediastinal contours are normal. Pulmonary vasculature is normal. Lungs are clear. Bony thorax is unremarkable. IMPRESSION: Within normal limits
--- NOTE | 2016-11-19 05:27 | ED.PDOC ---
General ED Provider: Dr. 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 The home enviorment was clean and there was no unusual smell. He states that his throat started feeling swollen and had alot of secreations with difficulty breathing. Time Seen by Physician: 23:59 Mode of Arrival: Walk-In Information Source: Patient Exam Limitations: No limitations Primary Care Provider: NORMA SWAIN Nursing and Triage Documentation Reviewed and Agree: Yes Respiratory Complaint Exam - Shortness of Air Complaint/Exam Onset/Duration: 30 min ago Symptoms Are: Still present Timing: Constant Initial Severity: Moderate Current Severity: Severe Character: Reports: Dyspnea at rest Aggravating: Reports: Allergens, URI, Weather Alleviating: Reports: Bronchodilators Associated Signs and Symptoms: Reports: Cough, Rapid breathing, Labored breathing Related History: Reports: Allergic reaction, Obesity. Denies: Recent trauma Pulmonary Embolism Risk Factors: Reports: None Cardiac Risk Factors: Reports: None Pseudomonas Risk Factors: Reports: None Tuberculosis Risk Factors: Reports: None Home Oxygen Use: No Recent Stress Test: No Recent Echo/LV Function: No Respiratory Distress: Moderate Stridor Present: Yes Tracheal Deviation: No Subcutaneous Emphysema: No Accessory Muscle Use: No Retractions: Not Present Diminished Breath Sounds: No Prolonged Expiratory Phase: No Unable to Speak Full Sentences: No Fatigue: No Leg Swelling: No Madalyn's Sign Present: No Grunting Respirations: No Kussmaul Respirations: No Differential Diagnoses: Asthma, Anaphylaxis, URI Quality Indicators for AMI: EKG in 10min. Quality Indicator For Non-Traumatic Chest Pain/Syncope: EKG Performed Review of Systems - Review Of Systems Constitutional: Reports: No symptoms Eyes: Reports: No symptoms Ears, Nose, Mouth, Throat: Reports: No symptoms Respiratory: Reports: Short of air, Wheezing Cardiac: Reports: No symptoms GI: Reports: No symptoms : Reports: No symptoms Musculoskeletal: Reports: No symptoms Skin: Reports: No symptoms Neurological: Reports: Anxiety Endocrine: Reports: No symptoms Hematologic/Lymphatic: Reports: No symptoms All Other Systems: Reviewed and Negative Past Medical History - Past Medical History Endocrine: Reports: DM 2 Cardiovascular: Reports: None Respiratory: Reports: None Hematological: Reports: None Gastrointestinal: Reports: None Genitourinary: Reports: None Neuro/Psych: Reports: None Musculoskeletal: Reports: None Cancer: Reports: None Other Pertinent Past Medical History: Obesity, E'herlichisis - Surgical History General Surgical History: Reports: None - Family History Family History: Reports: Diabetes - Social History Smoking Status: Never smoker Hx Substance Use: No Alcohol Screening: Occasionally - Immunizations Tetanus Shot up to Date: Yes Physical Exam - Physical Exam Appearance: Ill-appearing, Obese Ill-appearing: Severe Pain Distress: Severe Eyes: LINA, EOMI, Conjunctiva clear ENT: Ears normal, Nose normal, Oropharynx normal Neck: Supple Respiratory: Airway patent, Breath sounds clear, Breath sounds equal, Respirations nonlabored Cardiovascular: RRR, Pulses normal, No rub, No murmur GI/: Soft, Nontender, No masses, Bowel sounds normal, No Organomegaly Musculoskeletal: Normal strength, ROM intact, No edema, No calf tenderness Skin: Warm, Dry, Normal color Neurological: Sensation intact, Motor intact, Alert, Oriented Psychiatric: Anxious Interpretation - Radiology Interpretation Radiology Interpretation By: ED Physician Radiology Results: Negative Exam Interpreted: Portable CXR - Cad Design Engineer Rate: Normal Rhythm: Sinus Ectopy: None - EKG Interpretation Time of EKG #1: 23:57 Rate: Normal Rhythm: Sinus Dent: NL Interpretation: Fusion complexes Critical Care Note - Critical Care Note Total Time (mins): 30 Course - Course Hematology/Chemistry: 11/19/16 00:15 11/19/16 00:15 Orders, Labs, Meds: Lab Review 11/19/16 00:15 WBC 7.06 RBC 4.96 Hgb 14.9 Hct 43.3 MCV 87.3 MCH 30.0 MCHC 34.4 RDW Coeff of María 12.6 Plt Count 144 Immature Gran % (Auto) 0.1 Neut % (Auto) 43.8 Lymph % (Auto) 44.5 [place] % (Auto) 8.5 Eos % (Auto) 2.4 Baso % (Auto) 0.7 Immature Gran # (Auto) 0.0 Neut # 3.1 Lymph # 3.1 [place] # 0.6 Eos # 0.2 Baso # 0.1 Sodium 144 Potassium 3.4 L Chloride 104 Carbon Dioxide 27 Anion Gap 16.4 BUN 13 Creatinine 0.99 Estimated GFR (MDRD) 81.00 BUN/Creatinine Ratio 13.13 Glucose 130 H Calcium 9.6 Total Bilirubin 0.50 AST 18 ALT 34 Alkaline Phosphatase 68 Total Protein 6.8 Albumin 3.7 Globulin 3.1 Albumin/Globulin Ratio 1.19 Orders Category Date Time Status EKG-(ED ONLY) Stat CARDIO 11/18/16 23:58 Completed NEBULIZER TREATMENT Stat CARDIO 11/18/16 23:58 Completed IV [ED IV/MEDIPORT/POWERPORT] .ONCE EMERGENCY 11/19/16 02:53 Active CBC W/ AUTO DIFF Stat LAB 11/19/16 00:15 Completed CMP [COMPREHENSIVE METABOLIC PANEL] Stat LAB 11/19/16 00:15 Completed 0.9 % Sodium Chloride [Saline Flush] MEDS 11/19/16 02:53 Discontinued 1 syr IVF PRN PRN Diphenhydramine Inj [Benadryl] MEDS 11/19/16 03:07 Discontinued 25 mg IVP ONCE STA Epinephrine [Adrenalin 1:1000 Sdv] MEDS 11/19/16 03:03 Discontinued 0.3 mg IM ONCE STA Ipratropium/Albuterol Neb [Duoneb] MEDS 11/19/16 02:03 Discontinued 1 vial NEB ONCE STA Methylprednisolone Sod Succ/Pf [Solu-Medrol 125 mg] MEDS 11/19/16 03:05 Discontinued 125 mg IVP ONCE STA CHEST, 1V AP ONLY Stat RADS 11/19/16 02:02 Completed Medications Discontinued Medications Generic Name Dose Route Start Last Admin Trade Name Freq PRN Reason Stop Dose Admin Albuterol/Ipratropium 1 vial 11/19/16 02:03 11/18/16 23:59 Duoneb NEB 11/19/16 02:04 1 vial ONCE STA Administration Diphenhydramine HCl 25 mg 11/19/16 03:07 11/19/16 00:11 Benadryl IVP 11/19/16 03:08 25 mg ONCE STA Administration Epinephrine HCl 0.3 mg 11/19/16 03:03 11/19/16 00:10 Adrenalin 1:1000 Sdv IM 11/19/16 03:04 0.3 mg ONCE STA Administration Methylprednisolone Sodium Succinate 125 mg 11/19/16 03:05 11/19/16 00:11 Solu-Medrol 125 Mg IVP 11/19/16 03:06 125 mg ONCE STA Administration Sodium Chloride 1 syr 11/19/16 02:53 11/19/16 00:05 Saline Flush IVF 1 syr PRN PRN Administration To flush IV Vital Signs: Temp Pulse Resp BP Pulse Ox 11/18/16 23:55 98.8 F 93 H 24 151/104 H 100 Departure - Departure Time of Disposition: 01:30 Disposition: HOME SELF-CARE Discharge Problem: Allergic condition, Hypersecretion of saliva Instructions: Anaphylaxis (ED) Condition: Good Pt referred to PMD for follow-up: Yes Additional Instructions: Take medications a prescribed get over the counter medications for allergies such as claritin and Benadryl Prescriptions: Epinephrine [Epipen Twinpak] 0.3 mg IM PRN PRN #1 pen.injctr PRN Reason: Allergy Symptoms Methylprednisolone [Medrol Dosepak] 4 mg PO DIRECTED #1 pkg Allergies/Adverse Reactions: Allergies carisoprodol [From Soma] Adverse Reaction (Verified 11/19/16 02:28) hydroxyzine HCl [From Vistaril] Adverse Reaction (Verified 11/19/16 02:28) hydroxyzine pamoate [From Vistaril] Adverse Reaction (Verified 11/19/16 02:28) Penicillins Adverse Reaction (Verified 11/19/16 02:28) promethazine HCl [From Phenergan] Adverse Reaction (Verified 11/19/16 02:28) Home Medications: Ambulatory Orders Linagliptin/Metformin HCl [Jentadueto 2.5 mg-500 mg Tab] 2.5 mg PO BID 07/26/16 Epinephrine [Epipen Twinpak] 0.3 mg IM PRN PRN #1 pen.injctr 11/19/16 Methylprednisolone [Medrol Dosepak] 4 mg PO DIRECTED #1 pkg 11/19/16
== END 2016-11-19 01:20 | disposition home or self-care (01) ==
LOC: ED 23:55
DX: T78.40XA Allergy, unspecified, initial encounter (principal); R06.02 Shortness of breath; K11.7 Disturbances of salivary secretion; R05 Cough
CPT/HCPCS: 36415; 80053; 85025; 93005; 93010; 94640; 96372; 96374; 96375; 99283

== ENCOUNTER 2017-04-24 20:43 | Emergency (ER) ==
[2017-04-24 20:52] VITALS: TEMP 97.7; BMI 39.0
[2017-04-24] MEDS: ASPIRIN CHEWABLE PO STA (21:04)
[2017-04-24] MEDS: NITROSTAT SL STA (21:05)
[2017-04-24] MEDS: GI COCKTAIL PO STA (21:20)
[2017-04-24] MEDS: SODIUM CHLORIDE 1,000 ML IV STA (21:21)
[2017-04-24 22:00] VITALS: BP 106/81
--- NOTE | 2017-04-25 01:38 | ED.PDOC ---
General ED Provider: Dr. NORMA SWAIN-ER Chief Complaint: Chest Pain Stated Complaint: my chest is hurting Time Seen by Physician: 20:45 Mode of Arrival: Walk-In Information Source: Patient Exam Limitations: No limitations Primary Care Provider: NORMA SWAIN Nursing and Triage Documentation Reviewed and Agree: Yes Reviewed sepsis parameters & appropriate labs ordered?: Yes System Inflammatory Response Syndrome: Not Applicable Sepsis Protocol: For patient's 13 years and over: Temp is 96.8 and below OR 101 and greater Pulse >90 BPM Resp >20/minute Acutely Altered Mental Status Are patient's symptoms suggestive of a new infection, such as: -Pneumonia -Skin, Soft Tissue -Endocarditis -UTI -Bone, Joint Infection -Implantable Device -Acute Abdominal Infection -Wound Infection -Meningitis -Blood Stream Catheter Infection -Unknown Cardiovascular Complaint Exam - Chest Pain Complaint/Exam Onset: Gradual Duration: 2 days Symptoms Are: Still present Timing: Intermittent Initial Severity: Mild Current Severity: Mild Location: Reports: Discrete Pain Radiates: Reports: Neck Character: Reports: Dull Aggravating: Reports: None Alleviating: Reports: Spontaneous resolution Associated Signs and Symptoms: Reports: Palpitations. Denies: Diaphoresis, Nausea, Vomiting, Fever, Cough, Hemoptysis, Back pain, Abdominal pain, Dizziness , Short of air, Calf swelling Related Surgical History: Reports: None History of Healthcare-Acquired Pneumonia: Reports: No AMI/ACS Risk Factors: Reports: Obesity Prior Care for this Complaint: No Recent Stress Test: No Recent Echo/LV Function: No JVD Present: No Subcutaneous Emphysema Present: No Diminshed Breath Sounds: No Reproducible Chest Wall Pain: No Bilateral Pulses Present: Yes Unequal Pulses Noted: No Differential Diagnoses: Acute WI, ACS Quality Indicators For Acute WI or Cardiac Chest Pain: EKG in 10min. Review of Systems - Review Of Systems Constitutional: Reports: No symptoms Eyes: Reports: No symptoms Ears, Nose, Mouth, Throat: Reports: No symptoms Respiratory: Reports: No symptoms Cardiac: Reports: Chest pain, Palpitations GI: Reports: No symptoms : Reports: No symptoms Musculoskeletal: Reports: No symptoms Skin: Reports: No symptoms Neurological: Reports: No symptoms Endocrine: Reports: No symptoms Hematologic/Lymphatic: Reports: No symptoms All Other Systems: Reviewed and Negative Past Medical History - Past Medical History Previously Healthy: Yes Endocrine: Reports: DM 2 Cardiovascular: Reports: None Respiratory: Reports: None Hematological: Reports: None Gastrointestinal: Reports: None Genitourinary: Reports: None Neuro/Psych: Reports: None Musculoskeletal: Reports: None Cancer: Reports: None Other Pertinent Past Medical History: Obesity, E'herlichisis - Surgical History General Surgical History: Reports: None - Family History Family History: Reports: Diabetes - Social History Smoking Status: Never smoker Hx Substance Use: No Alcohol Screening: Occasionally Physical Exam - Physical Exam Appearance: Well-appearing, No pain distress, Well-nourished Pain Distress: Mild Eyes: LINA, EOMI, Conjunctiva clear ENT: Ears normal, Nose normal, Oropharynx normal Neck: Supple Respiratory: Airway patent, Breath sounds clear, Breath sounds equal, Respirations nonlabored Cardiovascular: RRR GI/: Soft Musculoskeletal: Normal strength Skin: Warm, Dry, Normal color Neurological: Sensation intact Psychiatric: Affect appropriate, Mood appropriate Interpretation - Radiology Interpretation Radiology Interpretation By: ED Physician Radiology Results: Negative Exam Interpreted: CXR - EKG Interpretation Time of EKG #1: 20:50 Rate: Normal Rhythm: Sinus Ectopy: None [place]: NL ST Segment: Normal Time of EKG #2: 00:55 Rate: Normal Rhythm: Sinus Ectopy: None [place]: NL ST Segment: Normal Re-Evaluation - Re-Evaluation Time of Re-Evaluation: 01:39 Status: Improved Vital Signs Stable: Yes Pain Level: 0 Appearance: NAD Lungs: Clear Skin: Warm and Dry Neuro: Alert and Oriented X3 CV: RRR Critical Care Note - Critical Care Note Total Time (mins): 0 Course - Course Hematology/Chemistry: 04/24/17 21:00 04/24/17 21:00 Orders, Labs, Meds: Lab Review 04/24/17 04/24/17 04/24/17 21:00 21:00 21:00 WBC 6.93 RBC 4.89 Hgb 15.2 Hct 42.8 MCV 87.5 MCH 31.1 H MCHC 35.5 H RDW Coeff of María 11.9 Plt Count 130 L Immature Gran % (Auto) 0.3 Neut % (Auto) 52.5 Lymph % (Auto) 36.9 [place] % (Auto) 7.4 Eos % (Auto) 2.6 Baso % (Auto) 0.3 Immature Gran # (Auto) 0.0 Neut # 3.6 Lymph # 2.6 [place] # 0.5 Eos # 0.2 Baso # 0.0 D-Dimer (Manual) 364.50 Sodium 139 Potassium 4.1 Chloride 104 Carbon Dioxide 29 Anion Gap 10.1 BUN 15 Creatinine 0.97 Estimated GFR (MDRD) 83.00 BUN/Creatinine Ratio 15.46 Glucose 134 H Calcium 9.0 Total Bilirubin 0.5 AST 22 ALT 39 Alkaline Phosphatase 73 Total Creatine Kinase 90 Troponin I < 0.0100 Total Protein 7.3 Albumin 3.5 Globulin 3.8 Albumin/Globulin Ratio 0.92 Amylase 72 Lipase 20 TSH Free T4 04/24/17 04/25/17 21:00 00:55 WBC RBC Hgb Hct MCV MCH MCHC RDW Coeff of María Plt Count Immature Gran % (Auto) Neut % (Auto) Lymph % (Auto) [place] % (Auto) Eos % (Auto) Baso % (Auto) Immature Gran # (Auto) Neut # Lymph # [place] # Eos # Baso # D-Dimer (Manual) Sodium Potassium Chloride Carbon Dioxide Anion Gap BUN Creatinine Estimated GFR (MDRD) BUN/Creatinine Ratio Glucose Calcium Total Bilirubin AST ALT Alkaline Phosphatase Total Creatine Kinase 83 Troponin I 0.0180 Total Protein Albumin Globulin Albumin/Globulin Ratio Amylase Lipase TSH 1.644 Free T4 1.07 Orders Category Date Time Status EKG-(ED ONLY) Stat CARDIO 04/24/17 20:47 Completed EKG-(ED ONLY) Timed CARDIO 04/25/17 01:00 Completed Pest Control Technician [ED PRINCIPAL ACCOUNT CLERK APPLIED] .ONCE EMERGENCY 04/24/17 20:47 Active ED IV/MEDIPORT/POWERPORT .ONCE EMERGENCY 04/24/17 20:58 Active AMYLASE Stat LAB 04/24/17 21:00 Completed CBC W/ AUTO DIFF Stat LAB 04/24/17 21:00 Completed CK [CREATINE KINASE] Timed LAB 04/25/17 00:55 Completed COMPREHENSIVE METABOLIC PANEL Stat LAB 04/24/17 21:00 Completed CREATINE KINASE Stat LAB 04/24/17 21:00 Completed D-DIMER Stat LAB 04/24/17 21:00 Completed FREE T4 (FREE THYROXINE) Stat LAB 04/24/17 21:00 Completed LIPASE Stat LAB 04/24/17 21:00 Completed TROPONIN I Stat LAB 04/24/17 21:00 Completed TROPONIN I Timed LAB 04/25/17 00:55 Completed TSH [THYROID STIMULATING HORMONE] Stat LAB 04/24/17 21:00 Completed 0.9 % Sodium Chloride [Saline Flush] MEDS 01/12/18 20:58 Discontinued 1 syr IVF PRN PRN Aspirin [Aspirin Chewable] MEDS 04/24/17 20:57 Discontinued 324 mg PO ONCE STA Mag-Al Plus//Lidocaine [Gi Cocktail] MEDS 04/24/17 21:14 Discontinued 30 ml PO ONCE STA Nitroglycerin [Nitrostat] MEDS 04/24/17 20:57 Discontinued 0.4 mg SL ONCE STA Sodium Chloride 0.9% [Sodium Chloride] 1,000 ml MEDS 04/24/17 20:58 Discontinued IV 100 mls/hr CXR [CHEST, 1V AP ONLY] Stat RADS 04/24/17 20:48 Completed Medications Discontinued Medications Generic Name Dose Route Start Last Admin Trade Name Freq PRN Reason Stop Dose Admin Al Hydroxide/Mg Hydroxide 30 ml 04/24/17 21:14 04/24/17 21:20 Gi Cocktail PO 04/24/17 21:15 30 ml ONCE STA Administration Aspirin 324 mg 04/24/17 20:57 04/24/17 21:04 Aspirin Chewable PO 04/24/17 20:58 324 mg ONCE STA Administration Sodium Chloride 1,000 mls @ 100 mls/hr 04/24/17 20:58 04/24/17 21:21 Sodium Chloride IV 04/25/17 06:57 100 mls/hr .Q10H STA Administration Nitroglycerin 0.4 mg 04/24/17 20:57 04/24/17 21:05 Nitrostat SL 04/24/17 20:58 0.4 mg ONCE STA Administration Sodium Chloride 1 syr 04/24/17 20:58 Saline Flush IVF PRN PRN To flush IV we observed Renan in the ed for several hours--denies any chest pain, ekg x 2 and cardiac markers are negative --i wanted to admit Renan and have stress test performed but he declines--he understands he does have risk of cad but refuses to be admitted but only will agree to outpatient referral for stress test Vital Signs: Temp Pulse Resp BP Pulse Ox 04/24/17 21:57 86 24 106/81 96 04/24/17 20:44 97.7 F 83 20 136/89 95 ALLA Risk Score ALLA Risk Score: Risk Score Odds of by 30D 0 0.1 (0.1-0.2) 1 0.3 (0.2-0.3) 2 0.4 (0.3-0.5) 3 0.7 (0.6-0.9) 4 1.2 (1.0-1.5) 5 2.2 (1.9-2.6) 6 3.0 (2.5-3.6) 7 4.8 (3.8-6.1) Departure - Departure Time of Disposition: 01:42 Disposition: HOME SELF-CARE Discharge Problem: Chest pain Instructions: Chest Pain (ED) Condition: Good Pt referred to PMD for follow-up: Yes IPMP verified?: No Additional Instructions: ec asa 81mg daily #30...protonix 40mg #30--call my office on thursday to set up stress test--if any further chest pain--call 911 Allergies/Adverse Reactions: Allergies carisoprodol [From Soma] Adverse Reaction (Verified 04/24/17 20:50) hydroxyzine HCl [From Vistaril] Adverse Reaction (Verified 04/24/17 20:50) hydroxyzine pamoate [From Vistaril] Adverse Reaction (Verified 04/24/17 20:50) Penicillins Adverse Reaction (Verified 04/24/17 20:50) promethazine HCl [From Phenergan] Adverse Reaction (Verified 04/24/17 20:50) Home Medications: Ambulatory Orders Linagliptin/Metformin HCl [Jentadueto 2.5 mg-500 mg Tab] 2.5 mg PO BID 07/26/16 Epinephrine [Epipen Twinpak] 0.3 mg IM PRN PRN #1 pen.injctr 11/19/16 Disposition Discussed With: Patient
--- NOTE | 2017-04-25 06:54 | DI ---
EXAM: Single view chest COMPARISON: Chest Xray from 11/19/2016 HISTORY: Chest pain FINDINGS: Lungs are clear with no lobar consolidation, failure, large effusion or significant atelec tasis. Cardiac and mediastinal silhouettes show no acute abnormality. No acute soft tissue or osseo us abnormalities. IMPRESSION: No active disease.
== END 2017-04-25 01:50 | disposition home or self-care (01) ==
LOC: ED 20:43
DX: R07.9 Chest pain, unspecified (principal); R00.2 Palpitations; E11.9 Type 2 diabetes mellitus without complications; E66.9 Obesity, unspecified
CPT/HCPCS: 36415; 80053; 82150; 82550; 83690; 84439; 84443; 84484; 85025; 85379; 93005; 93010; 99283

== ENCOUNTER 2017-05-10 17:37 | Emergency (ER) ==
[2017-05-10 17:45] VITALS: BP 138/84; TEMP 101.3; BMI 40.4
[2017-05-10] MEDS ORDERED: DUONEB NEB STA (17:48)
--- NOTE | 2017-05-10 18:07 | CT ---
EXAM: CT scan of the chest without contrast HISTORY: Cough TECHNIQUE: Helical imaging of the chest was performed without contrast. 5 mm thin axial images and coronal and sagittal reconstructions were provided for interpretation. FINDINGS: The heart is normal size. No mediastinal masses are seen. Lungs are clear. Lung volumes are normal. There is no pleural effusion. There has been previous cholecystectomy. Low density pina es are seen within the liver. No lytic or blastic lesions are seen within the osseous structures. IMPRESSION: No acute abnormalities are seen within the thorax. Fatty infiltration of the liver.
[2017-05-10] MEDS ORDERED: ZITHROMAX PO STA (18:17)
[2017-05-10] MEDS ORDERED: ROCEPHIN IM STA (18:17)
[2017-05-10] MEDS ORDERED: LIDOCAINE HCL 1% SDV SUBCUT STA ×2 (18:17→18:28)
[2017-05-10] MEDS ORDERED: SOLU-MEDROL 125 MG IVP STA (18:17)
--- NOTE | 2017-05-10 18:21 | ED.PDOC ---
General ED Provider: Dr. CORAZON HULL Chief Complaint: Respiratory Complaint Stated Complaint: wheezing , flu like symptoms Time Seen by Physician: 17:49 Mode of Arrival: Walk-In Information Source: Patient Exam Limitations: No limitations Primary Care Provider: NORMA SWAIN Nursing and Triage Documentation Reviewed and Agree: Yes Reviewed sepsis parameters & appropriate labs ordered?: Yes System Inflammatory Response Syndrome: Not Applicable Sepsis Protocol: For patient's 13 years and over: Temp is 96.8 and below OR 101 and greater Pulse >90 BPM Resp >20/minute Acutely Altered Mental Status Are patient's symptoms suggestive of a new infection, such as: -Pneumonia -Skin, Soft Tissue -Endocarditis -UTI -Bone, Joint Infection -Implantable Device -Acute Abdominal Infection -Wound Infection -Meningitis -Blood Stream Catheter Infection -Unknown System Inflammatory Response Syndrome: Not Applicable Respiratory Complaint Exam - Respiratory Complaint/Exam Onset/Duration: 3 days Symptoms Are: Still present Timing: Intermittent Initial Severity: Moderate Current Severity: Moderate Location: Nose, Throat, Chest Character: Reports: Non-productive cough Aggravating: Reports: None Alleviating: Reports: Bronchodilators Associated Signs and Symptoms: Reports: Dyspnea, Fever, Chills, URI, Nasal congestion Related History: Reports: Similar episode History of Healthcare-Acquired Pneumonia: No Related Surgical History: Reports: None Pulmonary Embolism Risk Factors: None Cardiac Risk Factors: Reports: None Pseudomonas Risk Factors: Reports: None Tuberculosis Risk Factors: Reports: None Status Asthmaticus Risk Factors: Reports: None Home Oxygen Use: No Recent Stress Test: No Recent Echo/LV Function: No Current Antibiotic Use: No Current Asthma Medication Use: No Respiratory Distress: None Inadequate Respiratory Effort: No Dysphagia Present: No Stridor Present: No JVD Present: No Retractions: Not Present Grunting Respirations: No Kussmaul Respirations: No Differential Diagnoses: Pneumonia, Bronchitis, Lower Resp. Infection Review of Systems - Review Of Systems Constitutional: Reports: No symptoms Eyes: Reports: No symptoms Ears, Nose, Mouth, Throat: Reports: No symptoms Respiratory: Reports: Cough, Wheezing Cardiac: Reports: No symptoms GI: Reports: No symptoms : Reports: No symptoms Musculoskeletal: Reports: No symptoms Skin: Reports: No symptoms Neurological: Reports: No symptoms Endocrine: Reports: No symptoms Hematologic/Lymphatic: Reports: No symptoms All Other Systems: Reviewed and Negative Past Medical History - Past Medical History Previously Healthy: Yes Endocrine: Reports: DM 2 Cardiovascular: Reports: None Respiratory: Reports: None Hematological: Reports: None Gastrointestinal: Reports: None Genitourinary: Reports: None Neuro/Psych: Reports: None Musculoskeletal: Reports: None Cancer: Reports: None Other Pertinent Past Medical History: Obesity, E'herlichisis - Surgical History General Surgical History: Reports: None - Family History Family History: Reports: Diabetes - Social History Smoking Status: Never smoker Hx Substance Use: No Alcohol Screening: Occasionally Physical Exam - Physical Exam Appearance: Ill-appearing Ill-appearing: Mild Pain Distress: Mild Eyes: LINA, EOMI, Conjunctiva clear ENT: Ears normal, Nose normal, Oropharynx normal Respiratory: Breath sounds diminished, Wheezes Cardiovascular: RRR, Pulses normal, No rub, No murmur GI/: Soft, Nontender, No masses, Bowel sounds normal, No Organomegaly Musculoskeletal: Normal strength, ROM intact, No edema, No calf tenderness Skin: Warm, Dry, Normal color Neurological: Sensation intact, Motor intact, Reflexes intact, Cranial nerves intact, Alert, Oriented Psychiatric: Affect appropriate, Mood appropriate Interpretation - Radiology Interpretation Radiology Interpretation By: Radiologist Radiology Results: No acute changes Critical Care Note - Critical Care Note Total Time (mins): 0 Course - Course Hematology/Chemistry: 05/10/17 18:00 Orders, Labs, Meds: Lab Review 05/10/17 18:00 WBC 3.72 L RBC 4.98 Hgb 15.0 Hct 43.8 MCV 88.0 MCH 30.1 MCHC 34.2 RDW Coeff of María 12.3 Plt Count 114 L Immature Gran % (Auto) 0.3 Neut % (Auto) 52.4 Lymph % (Auto) 30.9 [place] % (Auto) 13.7 H Eos % (Auto) 2.2 Baso % (Auto) 0.5 Immature Gran # (Auto) 0.0 Neut # 2.0 Lymph # 1.2 [place] # 0.5 Eos # 0.1 Baso # 0.0 Orders Category Date Time Status NEBULIZER TREATMENT Stat CARDIO 05/10/17 17:48 Ordered BLOOD CULTURE Stat LAB 05/10/17 17:48 Ordered CBC W/ AUTO DIFF Stat LAB 05/10/17 17:47 Ordered COMPREHENSIVE METABOLIC PANEL Stat LAB 05/10/17 17:47 Ordered FLU A/B MOLECULAR Stat LAB 05/10/17 17:48 Uncollected LACTIC ACID Stat LAB 05/10/17 17:47 Ordered MOLECULAR GROUP A STREP Stat LAB 05/10/17 17:48 Uncollected PROCALCITONIN Stat LAB 05/10/17 Ordered Azithromycin [Zithromax] MEDS 05/10/17 18:17 Stat 1,000 mg PO ONCE STA Ceftriaxone Sodium [Rocephin] MEDS 05/10/17 18:17 Stat 1 gm IM ONCE STA Ipratropium/Albuterol Neb [Duoneb] MEDS 05/10/17 17:48 Stat 1 vial NEB ONCE STA Lidocaine HCl/Pf [Lidocaine HCl 1% Sdv] MEDS 05/10/17 18:17 Stat 5 ml SUBCUT ONCE STA Methylprednisolone Sod Succ/Pf [Solu-Medrol 125 mg] MEDS 05/10/17 18:17 Stat [address] CHEST W/O CONTRAST Stat RADS 05/10/17 17:47 Ordered Medications Discontinued Medications Generic Name Dose Route Start Last Admin Trade Name Freq PRN Reason Stop Dose Admin Albuterol/Ipratropium 1 vial 05/10/17 17:48 Duoneb NEB 05/10/17 17:49 ONCE STA Azithromycin 1,000 mg 05/10/17 18:17 Zithromax PO 05/10/17 18:18 ONCE STA Ceftriaxone Sodium 1 gm 05/10/17 18:17 Rocephin IM 05/10/17 18:18 ONCE STA Lidocaine HCl 5 ml 05/10/17 18:17 Lidocaine Hcl 1% Sdv SUBCUT 05/10/17 18:18 ONCE STA Methylprednisolone Sodium Succinate 125 mg 05/10/17 18:17 Solu-Medrol 125 Mg IVP 05/10/17 18:18 ONCE STA Vital Signs: Temp Pulse Resp BP Pulse Ox 05/10/17 17:38 101.3 F H 97 H 20 138/84 95 Departure - Departure Time of Disposition: 19:00 Disposition: HOME SELF-CARE Discharge Problem: Viral syndrome Instructions: Viral Syndrome (ED) Condition: Good Pt referred to PMD for follow-up: Yes IPMP verified?: Yes Allergies/Adverse Reactions: Allergies carisoprodol [From Soma] Adverse Reaction (Verified 05/10/17 17:44) hydroxyzine HCl [From Vistaril] Adverse Reaction (Verified 05/10/17 17:44) hydroxyzine pamoate [From Vistaril] Adverse Reaction (Verified 05/10/17 17:44) Penicillins Adverse Reaction (Verified 05/10/17 17:44) promethazine HCl [From Phenergan] Adverse Reaction (Verified 05/10/17 17:44) Home Medications: Ambulatory Orders Linagliptin/Metformin HCl [Jentadueto 2.5 mg-500 mg Tab] 2.5 mg PO BID 07/26/16 Epinephrine [Epipen Twinpak] 0.3 mg IM PRN PRN #1 pen.injctr 11/19/16
[2017-05-10] MEDS ORDERED: TUSSIONEX PO STA (18:23)
[2017-05-10] MEDS ORDERED: ROCEPHIN 1 GM in SODIUM CHLORIDE 50 ML IV STA (18:28)
[2017-05-10] MEDS ORDERED: ROCEPHIN ONE (18:35)
[2017-05-10] MEDS ORDERED: ZOFRAN 4 MG/2 ML IM STA (18:37)
[2017-05-10] MEDS ORDERED: ZOFRAN 4 MG/2 ML IVP STA (18:59)
[2017-05-10] MEDS ORDERED: SODIUM CHLORIDE 1,000 ML IV STA (19:01)
== END 2017-05-10 20:20 | disposition home or self-care (01) ==
LOC: ED 17:37
DX: B34.9 Viral infection, unspecified (principal); R05 Cough
CPT/HCPCS: 36415; 80053; 83605; 84145; 85025; 87040; 87502; 87651; 94640; 96361; 96365; 96375; 99283

== ENCOUNTER 2018-10-14 12:32 | Emergency (ER) ==
[2018-10-14 12:39] VITALS: BP 117/91; TEMP 98; BMI 39.9
[2018-10-14] MEDS ORDERED: SODIUM CHLORIDE 1,000 ML IV STA (12:49)
[2018-10-14] MEDS ORDERED: MORPHINE 4 MG/ML SYRINGE IVP STA (12:50)
[2018-10-14] MEDS ORDERED: ZOFRAN 4 MG/2 ML IVP STA (12:50)
--- NOTE | 2018-10-14 14:09 | CT ---
EXAM: CT of the abdomen and pelvis with contrast. HISTORY: Left lower quadrant pain.. COMPARISON: 10/09/2016 TECHNIQUE: Contiguous axial images at 5 mm intervals were obtained from lung bases to the pubic symp hysis. The study was performed after IV contrast. Oral contrast was not given. CONTRAST: 80 ml Omnipaque [id number] FINDINGS: CHEST: The lung bases are clear. Heart size is within normal limits. ABDOMEN: LIVER: The liver demonstrates normal homogeneous enhancement without solid mass lesions or intrahep atic ductal dilatation. GALLBLADDER: The gallbladder is absent. There are clips in the gallbladder fossa. No fluid or inf lammation. PANCREAS: The pancreas demonstrates normal homogeneous enhancement without solid masses or surround ing inflammation. SPLEEN: The spleen demonstrates normal homogeneous enhancement. No mass lesions are identified. M ultiple splenules are noted. ADRENAL GLANDS: Normal. KIDNEYS: The kidneys demonstrate normal homogeneous enhancement without solid masses. There is mil d dilatation of the left renal collecting system secondary to a 5 mm calcification at the left ureter al pelvic junction. No distal stones are identified.. There are no obstructing ureteral stones. AORTA: The aorta is well opacified. There is no aneurysm or dissection. RETROPERITONEUM: There is no significant retroperitoneal or mesenteric adenopathy. No fluid colle ctions or mass lesions. BOWEL: The bowel is unopacified. There are no dilated loops of small bowel to suggest small bowel obstruction. There is no free fluid, free air or significant inflammatory process. The appendix is identified and appears normal. There is no fluid or inflammation in the right lower quadrant. A mod [id number] amount of stool is seen throughout the colon. There is no significant diverticulosis or evidence of acute diverticulitis. PELVIS: BLADDER: The bladder is well distended and appears normal. GENITOURINARY STRUCTURES: The prostate is unremarkable. OSSEOUS STRUCTURES: Normal for age. IMPRESSION: 1. Minimal left hydronephrosis second to a 5 mm calcification at the left ureteral pelvic junction. 2. No distal ureteral stones. 3. Prior cholecystectomy.
--- NOTE | 2018-10-14 14:28 | ED.PDOC ---
General ED Provider: Dr. CORAZON HULL Chief Complaint: Abdominal Pain Stated Complaint: LLQ PAIN Time Seen by Physician: 12:30 Mode of Arrival: Ambulance Information Source: Patient Exam Limitations: No limitations Primary Care Provider: NORMA SWAIN Nursing and Triage Documentation Reviewed and Agree: Yes Does patient meet sepsis criteria?: No System Inflammatory Response Syndrome: Not Applicable Sepsis Protocol: For patient's 13 years and over: Temp is 96.8 and below OR 101 and greater Pulse >90 BPM Resp >20/minute Acutely Altered Mental Status Are patient's symptoms suggestive of a new infection, such as: -Pneumonia -Skin, Soft Tissue -Endocarditis -UTI -Bone, Joint Infection -Implantable Device -Acute Abdominal Infection -Wound Infection -Meningitis -Blood Stream Catheter Infection -Unknown GI Complaint Exam - Abdominal Pain Complaint/Exam Onset: Gradual Duration: 1 DAY Symptoms Are: Still present Timing: Constant Initial Severity: Moderate Current Severity: Moderate Location of Pain: LLQ Radiates To: Reports: Flank (LEFT) Character: Reports: Aching Aggravating: Reports: None Alleviating: Reports: None Associated Signs and Symptoms: Denies: Diaphoresis, Fever, Cough, Chest pain, Dizziness, Back pain, Constipation, Blood in stool, Dysuria, Urinary frequency, Decreased urine output, Decreased appetite, Discharge, Nausea, Vomiting, Diarrhea, Decreased activity AAA Risk Factors: Reports: None Cardiac Risk Factors: Reports: DM Testicular Torsion Risk Factors: Reports: None Surgical Obstruction Risk Factors: Reports: None Related Surgical History: Reports: None Abdominal Findings: Present: None Differential Diagnoses: Bowel Obstruction, Constipation, Diverticulitis, Renal Colic Review of Systems - Review Of Systems Constitutional: Reports: No symptoms Eyes: Reports: No symptoms Ears, Nose, Mouth, Throat: Reports: No symptoms Respiratory: Reports: No symptoms Cardiac: Reports: No symptoms GI: Reports: Abdominal pain : Reports: No symptoms Musculoskeletal: Reports: No symptoms Skin: Reports: No symptoms Neurological: Reports: No symptoms Endocrine: Reports: No symptoms Hematologic/Lymphatic: Reports: No symptoms All Other Systems: Reviewed and Negative Past Medical History - Past Medical History Previously Healthy: Yes Endocrine: Reports: DM 2 Cardiovascular: Reports: None Respiratory: Reports: None Hematological: Reports: None Gastrointestinal: Reports: None Genitourinary: Reports: None Neuro/Psych: Reports: None Musculoskeletal: Reports: None Cancer: Reports: None Other Pertinent Past Medical History: Obesity, E'herlichisis - Surgical History General Surgical History: Reports: None - Family History Family History: Reports: Diabetes - Social History Smoking Status: Never smoker Hx Substance Use: No Alcohol Screening: Occasionally - Immunizations Tetanus Shot up to Date: No (UNKNOWN) Physical Exam - Physical Exam Appearance: Well-appearing, No pain distress, Well-nourished Eyes: LINA, EOMI, Conjunctiva clear ENT: Ears normal, Nose normal, Oropharynx normal Respiratory: Airway patent, Breath sounds clear, Breath sounds equal, Respirations nonlabored Cardiovascular: RRR, Pulses normal, No rub, No murmur GI/: Soft, Nontender, No masses, Bowel sounds normal, No Organomegaly Musculoskeletal: Normal strength, ROM intact, No edema, No calf tenderness Skin: Warm, Dry, Normal color Neurological: Sensation intact, Motor intact, Reflexes intact, Cranial nerves intact, Alert, Oriented Psychiatric: Affect appropriate, Mood appropriate Interpretation - Radiology Interpretation Radiology Interpretation By: Radiologist Radiology Results: Positive (STONE LEFT U.V.J) Physician Notification - Case Discussed Physician Notified: PMD Time of Notification: 14:28 (ASK PT TO CALL HIM IN AM ABOUT HIS PAIN AND URINATION) Critical Care Note - Critical Care Note Total Time (mins): 0 Course - Course Hematology/Chemistry: 10/14/18 12:55 10/14/18 12:55 Orders, Labs, Meds: Lab Review 10/14/18 10/14/18 12:55 12:55 WBC 7.07 RBC 4.80 Hgb 14.8 Hct 43.0 MCV 89.6 MCH 30.8 MCHC 34.4 RDW Coeff of María 12.1 Plt Count 135 L Immature Gran % (Auto) 0.4 Neut % (Auto) 64.8 Lymph % (Auto) 22.3 [place] % (Auto) 9.1 Eos % (Auto) 3.0 Baso % (Auto) 0.4 Immature Gran # (Auto) 0.0 Neut # (Auto) 4.6 Lymph # (Auto) 1.6 [place] # (Auto) 0.6 Eos # (Auto) 0.2 Baso # (Auto) 0.0 Sodium 140.5 Potassium 4.29 Chloride 103.0 Carbon Dioxide 28.2 Anion Gap 13.59 BUN 16.0 Creatinine 0.95 Estimated GFR (MDRD) 84.00 BUN/Creatinine Ratio 16.84 Glucose 138.9 H Calcium 8.92 Total Bilirubin 0.59 AST 28.6 ALT 31.0 Alkaline Phosphatase 74.5 Total Protein 7.56 Albumin 4.22 Globulin 3.34 Albumin/Globulin Ratio 1.26 Amylase 106.1 Lipase 92.5 Orders Category Date Time Status EKG-(ED ONLY) Stat CARDIO 10/14/18 12:39 Completed NPO REMINDER: IMAGING ONCE CARE 10/14/18 12:49 Ordered ED IV/MEDIPORT/POWERPORT .ONCE EMERGENCY 10/14/18 12:49 Ordered AMYLASE Stat LAB 10/14/18 12:48 Ordered CBC W/ AUTO DIFF Stat LAB 10/14/18 12:48 Ordered COMPREHENSIVE METABOLIC PANEL Stat LAB 10/14/18 12:48 Ordered LIPASE Stat LAB 10/14/18 12:55 Completed URINALYSIS C & S IF INDICATED Stat LAB 10/14/18 12:49 Uncollected 0.9 % Sodium Chloride [Saline Flush] MEDS 10/14/18 12:48 Ordered 1 syr IVF PRN PRN Morphine Sulfate [Morphine 4 mg/ml Syringe] MEDS 10/14/18 12:50 Stat 4 mg IVP ONCE STA Ondansetron HCl/Pf [Zofran 4 mg/2 ml] MEDS 10/14/18 12:50 Stat 4 mg IVP ONCE STA SODIUM CHLORIDE 0.9% @ 125 MLS/HR(1,000ml) MEDS 10/14/18 12:49 Ordered Sodium Chloride 0.9% [Sodium Chloride] 1,000 ml IV 125 mls/hr CT ABDOMEN/PELVIS W CONTRAST Stat RADS 10/14/18 12:49 Ordered Medications Generic Name Dose Route Start Last Admin Trade Name Freq PRN Reason Stop Dose Admin Sodium Chloride 1,000 mls @ 125 mls/hr 10/14/18 12:49 Sodium Chloride IV 10/14/18 20:48 .Q8H STA Sodium Chloride 1 syr 10/14/18 12:48 Saline Flush IVF PRN PRN To flush IV Discontinued Medications Generic Name Dose Route Start Last Admin Trade Name Freq PRN Reason Stop Dose Admin Morphine Sulfate 4 mg 10/14/18 12:50 Morphine 4 Mg/Ml Syringe IVP 10/14/18 12:51 ONCE STA Ondansetron HCl 4 mg 10/14/18 12:50 Zofran 4 Mg/2 Ml IVP 10/14/18 12:51 ONCE STA Vital Signs: Temp Pulse Resp BP Pulse Ox 10/14/18 12:32 98.0 F 78 22 117/91 H 98 Departure - Departure Time of Disposition: 14:28 Disposition: HOME SELF-CARE Discharge Problem: Abdominal pain, Renal colic on left side, Renal calculus, left Instructions: Kidney Stones (ED), Renal Colic (ED), Flank Pain (ED) Condition: Good Pt referred to PMD for follow-up: Yes IPMP verified?: No Additional Instructions: Please call your Family Physician as soon as possible to schedule a follow-up appointment. IF YOU HAVE ANY URINATION ISSUE OR FURTHER PLEASE CALL P.M.D Prescriptions: Hydrocodone Bit/Acetaminophen [[place] 10-325] 1 each PO Q6HR #10 tablet Tamsulosin HCl [Flomax] 0.4 mg PO DAILY #4 cap.er.24h Allergies/Adverse Reactions: Allergies carisoprodol [From Soma] Adverse Reaction (Verified 10/14/18 12:46) hydroxyzine HCl [From Vistaril] Adverse Reaction (Verified 10/14/18 12:46) hydroxyzine pamoate [From Vistaril] Adverse Reaction (Verified 10/14/18 12:46) Penicillins Adverse Reaction (Verified 10/14/18 12:46) promethazine HCl [From Phenergan] Adverse Reaction (Verified 10/14/18 12:46) Home Medications: Ambulatory Orders Linagliptin/Metformin HCl [Jentadueto 2.5 mg-500 mg Tab] 2.5 mg PO BID 07/26/16 Epinephrine [Epipen Twinpak] 0.3 mg IM PRN PRN #1 pen.injctr 11/19/16 Hydrocodone Bit/Acetaminophen [[place] 10-325] 1 each PO Q6HR #10 tablet 10/14/18 Tamsulosin HCl [Flomax] 0.4 mg PO DAILY #4 cap.er.24h 10/14/18 Disposition Discussed With: Patient, Family
== END 2018-10-14 15:00 | disposition home or self-care (01) ==
LOC: ED 12:32
DX: N20.0 Calculus of kidney (principal); E11.9 Type 2 diabetes mellitus without complications
CPT/HCPCS: 36415; 80053; 82150; 83690; 85025; 93005; 93010; 96360; 96361; 99284